=== PATIENT | female | born 1965 | race Caucasian/White ===

== ENCOUNTER 2018-09-12 10:41 | Emergency (ER) | payer MEDICAID ==
[~2018-09-12] VITALS: Ht 162.6 cm; Wt 159.1 kg
[~2018-09-12 10:41] MED LIST: AMLO-147 PO; CLON-379 PO; FURO20TA3 PO; HYDR100T25 PO; HYDR453.2 TOP; METO-429 PO; RIVA15TA PO; RIVA20TA5 PO
[2018-09-12 11:04] VITALS: Ht 162.6 cm; Wt 159.1 kg
--- NOTE | 2018-09-12 11:37 | ERD ---
ER Documentation Chief Complaint Chief Complaint pt biba from home for palpatations , denies cp hr is 86 HPI 53-year-old female history of hypertension, DVT on Xarelto, respiratory failure, diabetes and thoracic aneurysm presents to the ED via rescue ambulance complaining of palpitations. Symptoms lasted less than 5 minutes. No dizziness or syncope. Denies chest pain, shortness of breath, abdominal pain, nausea or vomiting. Mild, generalized, pressure-like, headache but no neck or back pain. No visual changes, focal weakness or numbness. No URI symptoms or cough. No fevers or chills. ROS All systems reviewed and are negative except as per history of present illness. Medications Home Meds Reported Medications Calcium Carbonate/Vitamin D3 (Oysco 500+D Tablet) 1 Each Tablet, 1 EACH PO DAILY, TAB 09/12/18 Metoprolol Tartrate* (Lopressor*) 50 Mg Tab, 50 MG PO BID, #60 TAB 09/12/18 Hydralazine Hcl* (Hydralazine Hcl*) 100 Mg Tablet, 100 MG PO TID, #90 TAB 09/12/18 Furosemide* (Furosemide*) 20 Mg Tablet, 20 MG PO BID, #30 TAB 09/12/18 Rivaroxaban* (Xarelto*) 15 Mg Tablet, 15 MG PO DAILY, TAB 09/12/18 Amlodipine Besylate* (Amlodipine Besylate*) 10 Mg Tablet, 10 MG PO DAILY, #30 TAB 09/12/18 Discontinued Reported Medications Hydrocortisone* Topical (Hydrocortisone* Topical) 1%-28.3 Gm Oint, 1 APPLIC TOP TID, TUB 12/12/15 Metoprolol Tartrate* (Lopressor*) 50 Mg Tab, 50 MG PO BID, #60 TAB 12/12/15 Hydralazine Hcl* (Hydralazine Hcl*) 100 Mg Tablet, 100 MG PO Q8, #90 TAB 12/12/15 Clonidine Hcl* (Clonidine Hcl*) 0.1 Mg Tab, 0.1 MG PO Q12, TAB 12/12/15 Amlodipine Besylate* (Amlodipine Besylate*) 10 Mg Tablet, 10 MG PO DAILY, #30 TAB 12/12/15 Discontinued Scripts Clonidine Hcl* (Clonidine Hcl*) 0.1 Mg Tab, 0.1 MG PO Q4H PRN for sbp>160, #30 TAB Prov:MARQUEZ WAY 12/13/15 Rivaroxaban* (Xarelto*) 20 Mg Tablet, 20 MG PO WITH DINNER for 9 Days, TAB Prov:MARQUEZ WAY 12/13/15 Rivaroxaban* (Xarelto*) 15 Mg Tablet, 15 MG PO BID for 21 Days, TAB Prov:MARQUEZ WAY 12/13/15 Furosemide* (Furosemide*) 20 Mg Tablet, 20 MG PO BID for 30 Days, TAB Prov:MARQUEZ WAY 12/13/15 Allergies Allergies: Coded Allergies: No Known Drug Allergies (Verified Allergy, Unknown, 09/12/18) PMhx/Soc History of Surgery: Yes (R knee surgery, ) Anesthesia Reaction: No Hx Neurological Disorder: No Hx Respiratory Disorders: No Hx Cardiac Disorders: Yes (htn) Hx Psychiatric Problems: No Hx Miscellaneous Medical Probl: Yes (HTN, dissecting T/S aneursym, dvt) Hx Alcohol Use: No Hx Substance Use: No Hx Tobacco Use: No Smoking Status: Never smoker Physical Exam Vitals Vital Signs Date Temp Pulse Resp B/P (MAP) Pulse Ox O2 O2 Flow FiO2 Time Delivery Rate 09/12/18 75 20 121/78 100 Room Air 16:08 (92) 09/12/18 70 17 150/76 100 Room Air 14:46 (100) 09/12/18 84 17 150/75 100 Room Air 12:46 (100) 09/12/18 98.6 82 17 160/84 99 11:04 (109) Physical Exam Const: No acute distress Head: Atraumatic Eyes: Normal Conjunctiva ENT: Normal External Ears, Nose and Mouth. Neck: Full range of motion. No JVD. Carotids are 2+ bilaterally without bruits. No meningismus. Resp: Clear to auscultation bilaterally Cardio: Regular rate and rhythm, no murmurs Abd: Soft, obese, non tender, non distended. No rebound or guarding. Normal bowel sounds Skin: No petechiae or rashes Back: No midline or flank tenderness Ext: No cyanosis, or edema. Pulses 4+ in all extremities. Neur: Awake and alert Psych: Anxious but not depressed. Result Diagram: 09/12/18 1145 09/12/18 1145 Results 24 hrs Laboratory Tests Test 09/12/18 11:45 White Blood Count 8.5 10^3/ul Red Blood Count 4.77 10^6/ul Hemoglobin 14.0 g/dl Hematocrit 43.4 % Mean Corpuscular Volume 91.0 fl Mean Corpuscular Hemoglobin 29.4 pg Mean Corpuscular Hemoglobin Concent 32.3 g/dl Red Cell Distribution Width 14.9 % Platelet Count 224 10^3/UL Mean Platelet Volume 10.4 fl Immature Granulocytes % 0.800 % Neutrophils % 75.9 % Lymphocytes % 15.0 % Monocytes % 6.1 % Eosinophils % 1.8 % Basophils % 0.4 % Nucleated Red Blood Cells % 0.0 /100WBC Immature Granulocytes # 0.070 10^3/ul Neutrophils # 6.5 10^3/ul Lymphocytes # 1.3 10^3/ul Monocytes # 0.5 10^3/ul Eosinophils # 0.2 10^3/ul Basophils # 0.0 10^3/ul Nucleated Red Blood Cells # 0.0 10^3/ul Prothrombin Time 16.1 Sec Prothrombin Time Ratio 1.3 INR International Normalized Ratio 1.28 Activated Partial Thromboplast Time 46.8 Sec Sodium Level 141 mmol/L Potassium Level 4.0 mmol/L Chloride Level 108 mmol/L Carbon Dioxide Level 23 mmol/L Anion Gap 10 Blood Urea Nitrogen 15 mg/dl Creatinine 0.72 mg/dl Est Glomerular Filtrat Rate mL/min > 60 mL/min Glucose Level 130 mg/dl Calcium Level 9.5 mg/dl Total Bilirubin 0.2 mg/dl Direct Bilirubin 0.00 mg/dl Indirect Bilirubin 0.2 mg/dl Aspartate Amino Transf (AST/SGOT) 19 IU/L Alanine Aminotransferase (ALT/SGPT) 21 IU/L Alkaline Phosphatase 102 IU/L Troponin I < 0.012 ng/ml Total Protein 7.4 g/dl Albumin 4.0 g/dl Globulin 3.40 g/dl Albumin/Globulin Ratio 1.17 Current Medications Medications Dose Sig/Julianna Start Time Status Last (Trade) Ordered Route PRN Stop Time Admin Dose Reason Admin 650 mg ONCE ONCE 09/12/18 DC 09/12/18 Acetaminophen PO 13:30 13:23 (Tylenol 09/12/18 13:31 Tab) Amlodipine 10 mg ONCE ONCE 09/12/18 DC 09/12/18 Besylate PO 15:00 15:50 (Norvasc) 09/12/18 15:01 Metoprolol 50 mg ONCE ONCE 09/12/18 DC 09/12/18 Tartrate PO 15:00 15:16 (Lopressor) 09/12/18 15:01 Furosemide 20 mg ONCE ONCE 09/12/18 DC 09/12/18 (Lasix) IV 15:00 15:18 09/12/18 15:01 Procedures/MDM DOCUMENTS REVIEWED: ED nurse, prior records EKG: Time: 11:31. Sinus rhythm. Ventricular rate 79. Normal MA and QRS. Rare PVCs. No acute ST segment elevation or depression. My Interpretation IMAGING: PROCEDURE: XR Chest. CLINICAL INDICATION: Chest pain. Palpitations. TECHNIQUE: Single portable view of the chest was obtained. COMPARISON: None FINDINGS: Cardiac/vascular structures: Normal cardiomediastinal silhouette. Pulmonary: Prominent bilateral interstitial opacities without focal airspace opacity.. No pleural effusion. No evidence of pneumothorax. Osseous structures: Normal Soft tissues: Normal IMPRESSION: Prominent interstitial opacities may represent chronic interstitial changes, mild pulmonary edema or infection. RPTAT:AAJJ Physician Eben Date Time Electronically viewed and signed by Physician Eben on 09/12/2018 12:31 MH/ PROCEDURE: CT Brain without contrast. CLINICAL INDICATION: Right-sided headache. Aneurysm. TECHNIQUE: A CT of the brain was performed on a multidetector CT scanner utilizing axial imaging from the skull base through the vertex without IV contrast. Multiplanar reformatted images were made. Images were reviewed on a PACS workstation. The CTDIvol is 36 mGy and the DLP is it is 634 mGycm. DICOM images are available. One or more of the following dose reduction techniques were utilized: 1.) Automated exposure control 2.) Adjustment of the mA +/- kV according to patient's size 3.) Use of iterative reconstruction technique. COMPARISON: None FINDINGS: There is no intracranial hemorrhage, mass effect, or midline shift. No extra- axial fluid collection is seen. The ventricles and sulci are normal in size and configuration. The density of the brain is normal, and the kwan white matter differentiation appears well-preserved. The visualized paranasal sinuses and osseous structures are grossly unremarkable. IMPRESSION: 1. No evidence of acute intracranial pathology. 2. The brain is normal in appearance. .Evert Waters MD, Date Time Electronically viewed and signed by .Evert Waters MD, on 09/12/2018 14:40 .A/ Observation Note: Time: 5 hours Family Hx: No Hypertension Evaluation: Multiple exams showed improving symptoms and no evidence of acute dysrhythmia or aortic dissection MED[employer] DECISION MAKIN-year-old female history of hypertension, DVT on Xarelto, respiratory failure, diabetes and thoracic aneurysm presents to the ED via rescue ambulance complaining of palpitations. CBC is negative for anemia, leukocytosis or thrombocytopenia. Chemistry reveals no evidence of electrolyte abnormalities, renal insufficiency or hyperglycemia. Patient with a mild headache not consistent with subarachnoid hemorrhage. No focal deficit or signs of CVA/TIA. Because the patient is anticoagulated and CT of the brain was performed which is negative for hemorrhage, mass, infarct or hydrocephalus. EKG is negative for ischemia or dysrhythmia. As per prior medical records patient has a history of a type B thoracic aneurysm. Although her presentation is not consistent with dissection further evaluation with a CT angiogram was discussed. After shared decision making incision was made to defer further imaging studies. Blood pressure was slightly elevated and she did not take her morning medications which were administered. Palpitations of uncertain etiology and a paroxysmal dysrhythmia is certainly possible but currently in sinus rhythm and asymptomatic. Patient will require urgent follow-up but in the absence of signs of serious, acute disease she is stable for discharge with precautionary instructions, urgent outpatient follow-up and strict return instructions as counseled. Counseled patient regarding diagnostic workup, diagnosis and need for followup. Understands to return to ED if symptoms recur, worsen or any other concerns. Departure Diagnosis: Primary Impression: Palpitations Additional Impression: Hypertension Hypertension type: essential hypertension Qualified Codes: I10 - Essential (primary) hypertension Condition: Stable TANIKA ALVARADO MD Sep 12, 2018 11:37
[2018-09-12] MEDS ORDERED: AMLO-147 PO (12:02)
[2018-09-12] MEDS ORDERED: RIVA15TA PO (12:03)
[2018-09-12] MEDS ORDERED: FURO20TA3 PO (12:03)
[2018-09-12] MEDS ORDERED: METO-429 PO (12:04)
[2018-09-12] MEDS ORDERED: HYDR100T25 PO (12:04)
[2018-09-12] MEDS ORDERED: CALC1TAB79 PO (12:05)
[2018-09-12] MEDS ORDERED: ACETAMINOPHEN 325 MG TAB PO ONE (13:30)
[2018-09-12] MEDS ORDERED: FUROSEMIDE 20 MG INJ IV ONE (15:00)
[2018-09-12] MEDS ORDERED: METOPROLOL 50 MG TAB PO ONE (15:00)
[2018-09-12] MEDS ORDERED: AMLODIPINE 10 MG TAB PO ONE (15:00)
[2018-09-12 16:08] VITALS: BP 121/78; PULSE 75; RESP 20
== END 2018-09-12 16:30 | disposition home or self-care (01) ==
LOC: E/R 10:41
DX: R00.2 Palpitations (principal); I10 Essential (primary) hypertension; E11.9 Type 2 diabetes mellitus without complications; R51 Headache; Z79.01 Long term (current) use of anticoagulants
CPT/HCPCS: 36415; 70450; 71045; 80053; 84484; 85025; 85610; 85730; 93005; 96374; J1940; Z7502; Z7610